=== PATIENT | female | born 2000 | race Hispanic/Latino ===

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

== ENCOUNTER 2022-03-15 15:25 | Emergency (ER) | payer OTHER, MEDICAID, SELFPAY ==
[2022-03-15 15:41] VITALS: BP 96/55; PULSE 85; RESP 16; TEMP 36.9; O2SAT 99; BMI 15.7
--- NOTE | 2022-03-15 18:29 | ED_ITS ---
HPI - Headache <RODOLFO Pinedo - Last Filed: 03/15/22 19:10> General Chief Complaint: Headache Stated Complaint: Headache for 1 month, worsening Time Seen by Provider: 03/15/22 17:55 Mode of arrival: Ambulatory History of Present Illness HPI Narrative: This is a 21-year-old female presents the emergency department complaining of intermittent headache for 1 month following upper respiratory viral infection. She states that she is allergic to aspirin and has a angioedema and so she does not take ibuprofen or any NSAIDs, seafood, or aspirin. She states that she is had frequency today, denies abnormal vaginal discharge, nausea, abdominal pain. States that when she gets a headache she has blurred vision occasionally. She has not had her vision checked and denies any new vision changes other than when she has a headache sometimes radiation is blurry. She states she is been taking Tylenol around the clock and it has been helpful but her headache recurs. She denies vomiting, fever or chills, denies upper respiratory illness symptoms, denies sore throat or ear pain. Related Data Previous Rx's Medication Instructions Recorded cephalexin 500 mg capsule 500 mg PO TID #30 caps 01/04/19 terbinafine HCl 1 % topical cream 1 applic topical BID #15 grams 06/01/20 ondansetron 4 mg disintegrating 4 mg PO Q8H PRN nausea and 03/15/22 tablet vomiting #14 tabs Allergies Allergy/AdvReac Type Severity Reaction Status Date / Time ibuprofen [IBUPROFEN] Allergy Unknown Verified 06/01/20 12:08 SEAFOOD Allergy Unknown Uncoded 07/28/17 13:54 Review of Systems <RODOLFO Pinedo - Last Filed: 03/15/22 19:10> Review of Systems ROS Unobtainable: All systems reviewed & are unremarkable except as noted in HPI and below Patient History <RODOLFO Pinedo - Last Filed: 03/15/22 19:10> Social History Smoking Status: Never smoker Smoking Status: Never smoker alcohol intake frequency: holidays/special occasions only Substance Use Type: does not use Exam <RODOLFO Pinedo - Last Filed: 03/15/22 19:10> Narrative Exam Narrative: Reviewed vitals signs and nursing notes. General: cooperative, comfortable, in no acute distress, well groomed, afebrile, nontoxic appearing HEENT: symmetrical facial expressions, moist mucous membranes, without congestion, sinus tenderness, rhinorrhea, fever, tenderness to bilateral ears. EOMI, PERRLA bilaterally, without temporal tenderness Respiratory: normal effort, able to speak in complete sentences, without wheezing, stridor, or abnormal breath sounds. No retractions or tachypnea. Without CVA tenderness, abdominal distention, or suprapubic tenderness. Skin: brisk capillary refill, without pallor or erythema Neuro: normal speech and cognition, A&O x3, ambulatory, clear speech Psych: mental status is grossly normal, congruent mood, normal affect, pleasant and cooperative Initial Vital Signs Initial Vital Signs: Vital Signs Temperature 98.4 F 03/15/22 15:41 Pulse Rate 85 03/15/22 15:41 Respiratory Rate 16 03/15/22 15:41 Blood Pressure 96/55 L 03/15/22 15:41 Pulse Oximetry 99 03/15/22 15:41 Oxygen Delivery Method 03/15/22 15:41 <Amie Batista DO - Last Filed: 03/16/22 12:55> Initial Vital Signs Initial Vital Signs: Vital Signs Temperature 98.4 F 03/15/22 15:41 Pulse Rate 85 03/15/22 15:41 Respiratory Rate 16 03/15/22 15:41 Blood Pressure 96/55 L 03/15/22 15:41 Pulse Oximetry 99 03/15/22 15:41 Oxygen Delivery Method 03/15/22 15:41 Course <RODOLFO Pinedo - Last Filed: 03/15/22 19:10> Orders Ordered: Discontinued Medications Acetaminophen (Acetaminophen 325 Mg Tablet) 650 mg PO NOW ONE Stop: 03/15/22 18:28 Last Admin: 03/15/22 18:51 Dose: 650 mg Documented By: ANALISA Dexamethasone (Dexamethasone 10 Mg/Ml Vial) 10 mg PO NOW ONE Stop: 03/15/22 18:28 Last Admin: 03/15/22 18:52 Dose: 10 mg Documented By: ANALISA Diphenhydramine HCl (Diphenhydramine 25 Mg Tablet) 25 mg PO NOW ONE Stop: 03/15/22 18:28 Last Admin: 03/15/22 18:52 Dose: 25 mg Documented By: ANALISA Ondansetron HCl (Ondansetron 4 Mg Odt) 4 mg SL NOW ONE Stop: 03/15/22 18:28 Last Admin: 03/15/22 18:52 Dose: 4 mg Documented By: ANALISA Reevaluation(s) Reevaluation #1: Reassessed patient, she states that her headache has now gone up to 7/10, medications were ordered for an oral migraine cocktail. Reevaluation #2: 1910, patient states that she is feeling much better and her headache is gone down to a 5/10 and seems to be continuing in that direction. She is comfortable headed home Vital Signs Vital signs: Vital Signs - 8 hr 03/15/22 15:41 03/15/22 18:56 Temperature 98.4 F Pulse Rate 85 84 Respiratory Rate 16 Blood Pressure 96/55 L 117/86 Pulse Oximetry 99 98 Oxygen Delivery Method Room Air <Amie Batista DO - Last Filed: 03/16/22 12:55> Orders Ordered: Discontinued Medications Acetaminophen (Acetaminophen 325 Mg Tablet) 650 mg PO NOW ONE Stop: 03/15/22 18:28 Last Admin: 03/15/22 18:51 Dose: 650 mg Documented By: ANALISA Dexamethasone (Dexamethasone 10 Mg/Ml Vial) 10 mg PO NOW ONE Stop: 03/15/22 18:28 Last Admin: 03/15/22 18:52 Dose: 10 mg Documented By: ANALISA Diphenhydramine HCl (Diphenhydramine 25 Mg Tablet) 25 mg PO NOW ONE Stop: 03/15/22 18:28 Last Admin: 03/15/22 18:52 Dose: 25 mg Documented By: ANALISA Ondansetron HCl (Ondansetron 4 Mg Odt) 4 mg SL NOW ONE Stop: 03/15/22 18:28 Last Admin: 03/15/22 18:52 Dose: 4 mg Documented By: ANALISA Vital Signs Vital signs: Vital Signs - 8 hr 03/15/22 15:41 03/15/22 18:56 Temperature 98.4 F Pulse Rate 85 84 Respiratory Rate 16 Blood Pressure 96/55 L 117/86 Pulse Oximetry 99 98 Oxygen Delivery Method Room Air MDM - Headache <RODOLFO Pinedo - Last Filed: 03/15/22 19:10> Lab Data Labs: Lab Results 03/15/22 Range/Units 18:15 Urine Color Yellow Urine Appearance Sl cloudy Urine pH 8.5 H (4.5-8.0) Ur Specific [place] 1.020 (1.000-1.035) Urine Protein Trace H (Negative) Urine Glucose (UA) Negative (Negative) g/dL Urine Ketones Negative (NEGATIVE) Urine Occult Blood Negative (Negative) Urine Nitrate Negative (Negative) Urine Bilirubin Negative (NEGATIVE) Urine Urobilinogen 0.2 (0.2) E.U./dL Ur Leukocyte Esterase Negative (NEGATIVE) Urine RBC 0-1/hpf (0-5/HPF) Urine WBC 0-1/hpf (0-5/HPF) Ur Squamous Epith Cells None seen (0-5/HPF) Other Crystals 1+ amorphous Urine Bacteria Occasional (0-1) (None) Ur Culture Indicated? Cult not indicated Point of Care Testing Test Results Negative MDM Narrative Medical decision making narrative: Is a 21-year-old female presents to emergency department complaining of intermittent headaches for 1 month or longer without history of migraines. She is pending a follow-up appointment with her primary care provider next week, states that she is not talked about migraines in the past and has not had a recent eye exam in the last few years. She complains of headache which is worse in the evenings with blurred vision, states that it gradually gets worse throughout the day and gets better with Tylenol. She has an allergy to aspirin and NSAIDs so she can not take those medications. She is been using Tylenol without any other medications with improved symptoms afterwards but states that it keeps returning. Respiratory infections. She denies recent fever, chills, does not have rhinorrhea, congestion, cough or sore throat at this time. She endorses having frequency and urgency today, her urine was negative for infection, RBCs or WBCs, trace bacteria. No culture was indicated. She was given Tylenol, dexamethasone, Zofran and Benadryl for her headache, her symptoms have improved mildly since this. Recheck of patient after her oral migraine cocktail, she is feeling much better, states that her pain has gone from an 8/10 down to a 5/10 and is trending in the right direction. Her vision symptoms have improved. She will follow up with her primary care provider in 1-2 weeks for recheck to discuss her migraine headaches. She is given strict return precautions. Headache considerations include subarachnoid hemorrhage, but unlikely as patient denies sudden onset of pain, not worst of life, or neck pain. Meningitis considered, but thought unlikely given lack of neck pain, and without altered mental status or fever. Giant cell arteritis considered, but thought unlikely given lack of unilateral findings, pain in catholic, or uni lateral vision changes. Other diagnosis considered include infectious causes, spontaneous hemorrhage, vascular occlusion, vasculitis, or venous thrombosis. They are without any focal deficits to suggest this. Other serious diagnoses considered unlikely given lack of red flag findings such as sudden onset, increasing frequency, facial weakness, or other sensation change or weakness. They are not immunocompromised, or with active malignancy, anticoagulation, systemic signs of illness (fever, chills, stiff neck, or rash), focal neurologic findings, or recent trauma. This is most likely (migraine, could be opthalmic, tension, hormonal, dehydration, viral illness, or muscle strain. There was no aura, and patient improved over their course in the ER. She is encouraged to have her vision checked, follow-up with her primary care provider, and return to the emergency department for new or worsening symptoms. They were given strict return precautions for any altered mental status, fever, weakness, paresthesia, incontinence, or pain out of proportion to return to the emergency department for another evaluation. <Amie Batista, DO - Last Filed: 03/16/22 12:55> Lab Data Labs: Lab Results 03/15/22 Range/Units 18:15 Urine Color Yellow Urine Appearance Sl cloudy Urine pH 8.5 H (4.5-8.0) Ur Specific [place] 1.020 (1.000-1.035) Urine Protein Trace H (Negative) Urine Glucose (UA) Negative (Negative) g/dL Urine Ketones Negative (NEGATIVE) Urine Occult Blood Negative (Negative) Urine Nitrate Negative (Negative) Urine Bilirubin Negative (NEGATIVE) Urine Urobilinogen 0.2 (0.2) E.U./dL Ur Leukocyte Esterase Negative (NEGATIVE) Urine RBC 0-1/hpf (0-5/HPF) Urine WBC 0-1/hpf (0-5/HPF) Ur Squamous Epith Cells None seen (0-5/HPF) Other Crystals 1+ amorphous Urine Bacteria Occasional (0-1) (None) Ur Culture Indicated? Cult not indicated Point of Care Testing Test Results Negative Discharge Plan Departure Patient Disposition: Home Clinical Impression: Intractable ophthalmic migraine Instructions: Migraine -- Adult, DI for Headache Activity Restrictions/Additional Instructions: *You have been diagnosed with a migraine headache which could be caused from hormones, tension, your eyes, working on computers etc.. Please get an eye exam just to rule out vision deficiency causing your brain to work harder. Please stay hydrated, take Zyrtec if you have congestion and Flonase for sinus congestion and tenderness if you have it. For your next migraine or headache, please take 1000 mg of Tylenol, 4 mg of Zofr an, and 25 mg of Benadryl, drink a full glass of water and go rest in a dark room, change position slowly and try to see if you can get rid of the headache. Please stay hydrated, that is a lee component, and follow-up with your regular doctor about these headaches and their frequency. Do not take more than 1000 mg of Tylenol in a 24 hours. *What to do: *Please continue to take your regular medications as directed. [x ] New medication prescriptions sent to your pharmacy: [[facility] ] [ ] New medication written as a paper prescription [ ] No new medications given *Please follow up with your primary care provider in 2-3 days, call for an appointment. Let them know you were seen in the Emergency Department and that we asked that you be seen for follow-up. We will electronically transmit a record of today's note if your PCP is in our system *If you do not have a primary care provider please contact [phone] to establish care with one of the [facility] primary care providers. *Return to Emergency Department if you should have any new, worsening, or concerning symptoms, such as [fever greater than 101F, chills, worsening pain, persistent vomiting or other bothersome symptoms]. Prescriptions: New ondansetron 4 mg tablet,disintegrating 4 mg PO Q8H PRN (Reason: nausea and vomiting) Qty: 14 0RF No Action terbinafine HCl 1 % cream 1 applic topical BID Qty: 15 0RF cephalexin 500 mg capsule 500 mg PO TID Qty: 30 0RF Referrals: Amie Sandy MD [Non-Staff] - Visit Report Forms: Patient Portal/API <Amie Batista DO - Last Filed: 03/16/22 12:55> Cosign ED Attending Cosheavenature Attestation: I was immediately available in the department for consultation. Documentation has been reviewed.
[2022-03-15 18:40] LABS: Appearance Urine UA SL CLOUDY; Bilirubin Urine UA NEGATIVE (NEGATIVE); Color Urine UA YELLOW; Glucose Urine UA NEGATIVE (Negative); Ketones Urine UA NEGATIVE (NEGATIVE); Leukocyte Esterase Urine UA NEGATIVE (NEGATIVE); Nitrite Urine UA NEGATIVE (Negative); Occult Blood Urine UA NEGATIVE (Negative); Protein Urine UA TRACE (Negative); Urobilinogen Urine UA 0.2 E.U./dL (0.2)
[2022-03-15 18:46] LABS: pH Urine UA 8.5 (4.5-8.0)
[2022-03-15] MEDS: ACETAMINOPHEN 325 MG TABLET 650 MG PO (18:51)
[2022-03-15] MEDS: diphenhydrAMINE 25 MG TABLET PO (18:52)
[2022-03-15] MEDS: DEXAMETHASONE 10 MG/ML VIAL PO (18:52)
[2022-03-15] MEDS: ONDANSETRON 4 MG ODT SL (18:52)
[2022-03-15 18:56] VITALS: BP 117/86; PULSE 84; O2SAT 98
[2022-03-15 18:57] LABS: Bacteria Urine Occasional (0-1); Culture Indicated Urine Cult Not Indicated; Other Crystals Urine 1+ Amorphous; RBC Urine 0-1/HPF (0-5/HPF); Squamous Epithelial Cell Urine None Seen (0-5/HPF); WBC Urine 0-1/HPF (0-5/HPF)
== END 2022-03-15 19:20 | disposition home or self-care (01) ==
PROVIDERS: Emergency Provider Nurse Practitioner Critical Care Medicine
DX: G43.819 Other migraine, intractable, without status migrainosus (principal)
CPT/HCPCS: 81001; 81025; 99283; J1100

== ENCOUNTER 2023-09-07 12:56 | Emergency (ER) | payer SELFPAY ==
[2023-09-07 12:59] VITALS: BP 117/59; PULSE 86; RESP 15; TEMP 37.4; O2SAT 97; BMI 15.7
--- NOTE | 2023-09-07 13:17 | ED.HA ---
HPI - Headache General Chief Complaint: Headache Stated Complaint: Migraine Time Seen by Provider: 09/07/23 13:16 Source: patient Mode of arrival: Ambulatory History of Present Illness HPI Narrative: Patient is a 23-year-old female. Has a history of migraine headaches. Takes sumatriptan for this. She was here with a migraine. She states it actually started last week but started as a minor headache but has now progressed since then. It has been at its current intensity for the past 3 days. She states she feels feverish but does not have a fever. No numbness and tingling in upper and lower extremities. Does have photophobia. Related Data Previous Rx's Medication Instructions Recorded cephalexin 500 mg capsule 500 mg PO TID #30 caps 01/04/19 terbinafine HCl 1 % topical cream 1 applic topical BID #15 grams 06/01/20 ondansetron 4 mg disintegrating 4 mg PO Q8H PRN nausea and 03/15/22 tablet vomiting #14 tabs Allergies Allergy/AdvReac Type Severity Reaction Status Date / Time ibuprofen [IBUPROFEN] Allergy Unknown Verified 09/07/23 13:00 aspirin Allergy Verified 09/07/23 13:00 SEAFOOD Allergy Unknown Uncoded 07/28/17 13:54 Review of Systems Review of Systems Narrative: See HPI Patient History Social History Smoking Status: Never smoker Smoking Status: Never smoker alcohol intake frequency: holidays/special occasions only Substance Use Type: does not use Exam Initial Vital Signs Initial Vital Signs: Vital Signs Temperature 99.4 F 09/07/23 12:59 Pulse Rate 86 09/07/23 12:59 Respiratory Rate 15 09/07/23 12:59 Blood Pressure 117/59 L 09/07/23 12:59 Pulse Oximetry 97 09/07/23 12:59 Oxygen Delivery Method Room Air 09/07/23 12:59 HENMT Head: normal to inspection and normocephalic Resp Effort & Inspection: normal respiratory effort Auscultation: clear to auscultation bilaterally Cardio Rate: regular rate Rhythm: regular rhythm GI Inspection: normal to inspection Skin General: no rashes or lesions noted Neuro General: patient alert, patient awake, patient oriented x3 and moves all extremities Extrem General: normal to inspection and capillary refill normal Course Orders Ordered: Discontinued Medications Diphenhydramine HCl (Diphenhydramine 50 Mg/Ml Vial) 25 mg IV NOW ONE Stop: 09/07/23 13:17 Last Admin: 09/07/23 13:41 Dose: 25 mg Documented By: Sodium Chloride (Normal Saline 0.9%) 1,000 mls @ 1,000 mls/hr IV BOLUS ONE Stop: 09/07/23 14:15 Last Admin: 09/07/23 13:42 Dose: 1,000 mls/hr Documented By: Acetaminophen (Ofirmev) 1,000 mg in 100 mls @ 400 mls/hr IV NOW ONE Stop: 09/07/23 13:45 Last Infusion: 09/07/23 14:04 Dose: Infused Documented By: Admin: 09/07/23 13:42 Dose: 400 mls/hr Documented By: Ketorolac Tromethamine (Ketorolac 30 Mg/Ml Vial) 30 mg IV NOW ONE Stop: 09/07/23 13:17 Last Admin: 09/07/23 13:48 Dose: Not Given Documented By: Metoclopramide HCl (Metoclopramide 10 Mg/2 Ml Inj) 10 mg IV NOW ONE Stop: 09/07/23 13:17 Last Admin: 09/07/23 13:41 Dose: 10 mg Documented By: Vital Signs Vital signs: Vital Signs - 8 hr 09/07/23 12:59 09/07/23 14:24 Temperature 99.4 F Pulse Rate 86 65 Respiratory Rate 15 16 Blood Pressure 117/59 L 100/59 L Pulse Oximetry 97 100 Oxygen Delivery Method Room Air Room Air MDM - Headache MDM Narrative Medical decision making narrative: Patient reports almost complete resolution of symptoms after medications here in the ER. I have low suspicion for intracranial hemorrhage or meningitis. I suspect this was 1 of her typical migraines. Patient states she feels well enough to go home. She was given return precautions. She expressed understanding and agreement. Discharge Plan Departure Patient Disposition: Home Clinical Impression: Migraine Instructions: DI for Migraine Activity Restrictions/Additional Instructions: Recommend that you continue to take all of your medications as directed. Contact your primary doctor for a follow-up. Return to the emergency department for new or worsening symptoms. Prescriptions: No Action terbinafine HCl 1 % cream 1 applic topical BID Qty: 15 0RF cephalexin 500 mg capsule 500 mg PO TID Qty: 30 0RF ondansetron 4 mg tablet,disintegrating 4 mg PO Q8H PRN (Reason: nausea and vomiting) Qty: 14 0RF Stand Alone Forms: Patient Portal/API, Work Release Note
[2023-09-07] MEDS: diphenhydrAMINE 50 MG/ML VIAL 25 MG IV (13:41)
[2023-09-07] MEDS: METOCLOPRAMIDE 10 MG/2 ML INJ IV (13:41)
[2023-09-07] MEDS: SODIUM CHLORIDE 0.9% 1,000 ML 1000 ML IV (13:42)
[2023-09-07] MEDS: ACETAMINOPHEN IV 1,000 MG/100 ML VIAL 400 MG IV (13:42)
[2023-09-07 14:24] VITALS: BP 100/59; PULSE 65; RESP 16; O2SAT 100
== END 2023-09-07 15:30 | disposition home or self-care (01) ==
PROVIDERS: Emergency Provider Emergency Medicine
DX: G43.909 Migraine, unspecified, not intractable, without status migrainosus (principal)
CPT/HCPCS: 36415; 96365; 96375; 99284; J0136; J1200; J2765